=== PATIENT | female | born 1965 | race Caucasian/White ===

== ENCOUNTER 2019-10-15 06:02 | Outpatient (CLI) | payer OTHER, SELFPAY ==
[2019-10-15 18:35] LABS: SARS-CoV-2 RNA PCR Negative
== END 2019-10-15 06:03 | disposition home or self-care (01) ==
LOC: ANHCOVIDDT 06:02
PROVIDERS: PCP Internal Medicine; Visit Provider Internal Medicine Gastroenterology
DX: Z01.818 Encounter for other preprocedural examination (principal); Z11.59 Encounter for screening for other viral diseases
CPT/HCPCS: 87635; C9803; U0003

== ENCOUNTER 2019-10-17 02:29 | Day surgery (SDC) | payer OTHER, SELFPAY ==
[2019-10-14 10:20] VITALS: BMI 36.6
[2019-10-17 06:42] VITALS: BP 121/73; PULSE 79; RESP 16; TEMP 36.6; O2SAT 99; BMI 36.7
[2019-10-17] MEDS: LACTATED RINGERS 1,000 ML 150 ML IV CONT (06:54)
--- NOTE | 2019-10-17 07:03 | WPDANESEPPF ---
Anes - Initial Pre Proc Eval Procedure: Operation Date: 10/17/19 07:30 Proposed Procedures p Esophagogastroduodenoscopy & Colonoscopy - Ian Floyd MD Date/Time: 10/17/19 07:03 Surgeon: Ian Floyd MD Pre Op Diagnosis: Abdominal Pain/ Epigastric Pain Patient Data Age: 54 Gender: F Height: 5 ft 5 in Weight: 100.2 kg Last Vital Signs Temp 36.6 C 10/17/19 06:42 Pulse 79 10/17/19 06:42 Resp 16 10/17/19 06:42 BP 121/73 10/17/19 06:42 Pulse Ox 99 10/17/19 06:42 Allergies Allergy/AdvReac Type Severity Reaction Status Date / Time corn Allergy Severe joint Verified 10/17/19 06:39 swelling Sulfa (Sulfonamide Allergy Mild Diarrhea Verified 10/17/19 06:39 Antibiotics) sulfanilamide Allergy Mild Diarrhea Verified 10/17/19 06:39 tomato Allergy Mild Joint Pain Verified 10/17/19 06:39 gluten AdvReac Mild Joint Pain Verified 10/17/19 06:39 Home Medications Medication Instructions Recorded Confirmed Type alpha lipoic acid 200 mg capsule 200 mg PO DAILY cap 09/26/19 10/17/19 History ascorbic acid (vitamin C) 500 mg 1 gm PO DAILY tablet 09/26/19 10/17/19 History tablet calcium carbonate 600 mg calcium 600 mg PO DAILY 09/26/19 10/17/19 History (1,500 mg) tablet coenzyme Q10 400 mg capsule 1,000 mg PO DAILY 09/26/19 10/17/19 History esomeprazole magnesium 20 mg 20 mg PO DAILY 09/26/19 10/17/19 History capsule,delayed release ferrous sulfate 325 mg (65 mg 325 mg PO .1XW tablet 09/26/19 10/17/19 History iron) tablet lysine 500 mg tablet 500 mg PO DAILY 09/26/19 10/17/19 History magnesium 30 mg tablet 500 mg PO DAILY 09/26/19 10/17/19 History phytonadione (vitamin K1) 100 mcg 100 mcg PO DAILY 09/26/19 10/17/19 History tablet zinc 50 mg tablet 50 mg PO DAILY 09/26/19 10/17/19 History gabapentin 300 mg capsule 300 mg PO DAILY cap 10/01/19 10/17/19 History ibuprofen 800 mg tablet 800 mg PO TID PRN 10/01/19 10/17/19 History biotin 10,000 mcg PO DAILY 10/14/19 10/17/19 History cyanocobalamin (vitamin B-12) 1,000 mcg PO DAILY 10/14/19 10/17/19 History [Vitamin B-12] vitamin E 400 unit PO DAILY 10/14/19 10/17/19 History Patient hx anesthesia problems: none Family hx anesthesia problems: none PMFSH Past Medical History Medical History (Updated 10/17/19 @ 07:03 by Saleem Ayala MD) Breast cancer Obesity Surgical History Surgical History H/O lumpectomy Family History Family History Mother Family history of gallbladder disease Other Family history of coronary artery disease Family history of malignant neoplasm Hypertension Social History Social History Smoking status: Never smoker Second hand tobacco smoke exposure: No Alcohol intake: never Substance use: never Anes - Eval Final PreProcedure Day of Procedure 10/17/19 07:03 Patient weight: obese Heart: regular rate and rhythm Lungs: clear to auscultation Airway: Mallampati scale class II Neurological: alert and oriented Last oral intake: >/= 8 hours ASA classification: III Emergent: no Anesthetic plan: proceed Anesthesia type and monitoring: general GIVS and standard monitoring Informed Consent: The patient's anesthetic plan and its attendant risks and benefits were discussed with the patient/family/POA. Questions were solicited and answers provided to the satisfaction of the patient/family/POA.
--- NOTE | 2019-10-17 07:34 | WPDGICN ---
Assessment and Plan Assessment and plan (1) Breast cancer: Code(s): C50.919 - Malignant neoplasm of unspecified site of unspecified female breast Status: Acute (2) Obesity: Code(s): E66.9 - Obesity, unspecified Status: Acute (3) Abdominal pain: Code(s): R10.9 - Unspecified abdominal pain Status: Acute Assessment and Plan: Patient has abdominal pain in various locations throughout her abdomen. No specific features identified either pain. Her bowel habits are normal or weight has remained stable. Symptoms appear to have started after chemotherapy. She states pain is best in the morning and progresses as the day progresses. Plan is to treat her with proton pump inhibitor because of history of GE reflux. A colonoscopy an EGD will be performed further recommendations may be given after endoscopy. GI Consult Note Consult date/time: 10/17/19 07:34 HPI: Alexa Stone is a 54 year old female Seen in evaluation at the request of Dr. George Bullard. Patient has a diagnosis of breast cancer 1 year ago. She underwent chemotherapy from January 04March and radiation therapy in AprilMay 2019. Since that time she has developed chronic abdominal pain in various locations in her abdomen. Often epigastric pain sometimes with chronic lower abdominal pain. Her bowel habits apparently have been normal. She denies any bleeding or weight loss. Last colonoscopy was in 2005. She has an underlying history of GE reflux. Years ago may have had an esophageal web. She is completed several cycles of chemotherapy. But plan is to evaluate abdominal pain and nausea prior to last cycle of chemotherapy. Review of Systems Review of Systems: All systems reviewed & are unremarkable except as noted in HPI and below PMFSH Past Medical History Medical History Breast cancer Obesity Surgical History Surgical History H/O lumpectomy Family History Family History Mother Family history of gallbladder disease Other Family history of coronary artery disease Family history of malignant neoplasm Hypertension Social History Social History Smoking status: Never smoker Second hand tobacco smoke exposure: No Alcohol intake: never Substance use: never Meds Home Medications and Allergies Home Medications Medication Instructions Recorded Confirmed Type alpha lipoic acid 200 mg capsule 200 mg PO DAILY cap 09/26/19 10/17/19 History ascorbic acid (vitamin C) 500 mg 1 gm PO DAILY tablet 09/26/19 10/17/19 History tablet calcium carbonate 600 mg calcium 600 mg PO DAILY 09/26/19 10/17/19 History (1,500 mg) tablet coenzyme Q10 400 mg capsule 1,000 mg PO DAILY 09/26/19 10/17/19 History esomeprazole magnesium 20 mg 20 mg PO DAILY 09/26/19 10/17/19 History capsule,delayed release ferrous sulfate 325 mg (65 mg 325 mg PO .1XW tablet 09/26/19 10/17/19 History iron) tablet lysine 500 mg tablet 500 mg PO DAILY 09/26/19 10/17/19 History magnesium 30 mg tablet 500 mg PO DAILY 09/26/19 10/17/19 History phytonadione (vitamin K1) 100 mcg 100 mcg PO DAILY 09/26/19 10/17/19 History tablet zinc 50 mg tablet 50 mg PO DAILY 09/26/19 10/17/19 History gabapentin 300 mg capsule 300 mg PO DAILY cap 10/01/19 10/17/19 History ibuprofen 800 mg tablet 800 mg PO TID PRN 10/01/19 10/17/19 History biotin 10,000 mcg PO DAILY 10/14/19 10/17/19 History cyanocobalamin (vitamin B-12) 1,000 mcg PO DAILY 10/14/19 10/17/19 History [Vitamin B-12] vitamin E 400 unit PO DAILY 10/14/19 10/17/19 History Allergies Allergy/AdvReac Type Severity Reaction Status Date / Time corn Allergy Severe joint Verified 10/17/19 06:39 swelling Sulfa (Sulfonamide Allergy Mild Diarrhea Verified 10/17/19 06:39 A
[2019-10-17] MEDS: BENZOCAINE (*SP) 60 ML SPRAY CAN (HURRICAINE) 1 SPRAY MUCOUS MEM (07:39)
[2019-10-17] MEDS: SIMETHICONE ORAL SUSPENSION 20 MG/0.3 ML 30 ML BOTTLE 0.6 ML IRRIGATION (07:51)
[2019-10-17 08:02] VITALS: BP 102/68; PULSE 82; RESP 22; O2SAT 95
[2019-10-17 08:12] VITALS: BP 111/87; PULSE 78; RESP 29; O2SAT 100
[2019-10-17 08:22] VITALS: BP 126/80; PULSE 73; RESP 16; O2SAT 99
== END 2019-10-17 08:54 | disposition home or self-care (01) ==
PROVIDERS: PCP Internal Medicine; Visit Provider Internal Medicine Gastroenterology
PROC: 0DJ08ZZ Inspection of Upper Intestinal Tract, Via Natural or Artificial Opening Endoscopic (ICD-10-PCS; CPT 43235; principal; 2019-10-17 07:30)
DX: R10.84 Generalized abdominal pain (principal); K21.9 Gastro-esophageal reflux disease without esophagitis; Z12.11 Encounter for screening for malignant neoplasm of colon; K64.8 Other hemorrhoids; Z85.3 Personal history of malignant neoplasm of breast; Z92.21 Personal history of antineoplastic chemotherapy; Z92.3 Personal history of irradiation; E66.9 Obesity, unspecified; Z68.36 Body mass index [BMI] 36.0-36.9, adult
CPT/HCPCS: 45378; 43239; 87081; J2704; J7120

== ENCOUNTER 2023-04-04 01:56 | Day surgery (SDC) | payer BC, SELFPAY ==
[2023-03-31 11:44] VITALS: BMI 40.2
[2023-04-04 07:03] VITALS: BP 152/73; PULSE 78; RESP 18; TEMP 36.1; O2SAT 98
[2023-04-04] MEDS: LACTATED RINGERS 1,000 ML 150 ML IV CONT (07:13)
--- NOTE | 2023-04-04 08:03 | WPDANESEPPF ---
Anes - Initial Pre Proc Eval Procedure: Operation Date: 04/04/23 08:15 Proposed Procedures p Esophagogastroduodenoscopy - Rodger Sinha MD Date/Time: 04/04/23 08:03 Surgeon: Rodger Sinha MD Pre Op Diagnosis: Right upper quadrant pain Patient Data Age: 57 Gender: F Height: 1.61 m Weight: 106.8 kg Last Vital Signs Temp 97 F L 04/04/23 07:03 Pulse 78 04/04/23 07:03 Resp 18 04/04/23 07:03 BP 152/73 H 04/04/23 07:03 Pulse Ox 98 04/04/23 07:03 O2 Del Method Room Air 04/04/23 07:03 Allergies Allergy/AdvReac Type Severity Reaction Status Date / Time corn Allergy Severe joint Verified 04/04/23 07:01 swelling Sulfa (Sulfonamide Allergy Mild Diarrhea Verified 04/04/23 07:01 Antibiotics) sulfanilamide Allergy Mild Diarrhea Verified 04/04/23 07:01 tomato Allergy Mild Joint Pain Verified 04/04/23 07:01 gluten AdvReac Mild Joint Pain Verified 04/04/23 07:01 Home Medications Medication Instructions Recorded Confirmed Type anastrozole 1 mg tablet 1 mg PO DAILY 12/27/19 03/31/23 History gabapentin 300 mg capsule 600 mg PO .hs 12/27/19 03/31/23 History potassium citrate 5 mEq (540 mg) 5 meq PO DAILY 02/14/23 03/31/23 History tablet,extended release omeprazole 40 mg capsule,delayed See Rx Instructions .Route 03/29/23 03/31/23 Rx release .COMPLEX #90 caps Patient hx anesthesia problems: none Family hx anesthesia problems: none Results Review: All pre-operative results and documents have been reviewed as part of the pre-operative evaluation. [facility] Past Medical History Medical History (Updated 03/29/23 @ 09:00 by ESTEBAN Shelby) BMI 40.0-44.9, adult Breast cancer Cholecystectomy planned Kidney stones Obesity Surgical History Surgical History (Updated 03/29/23 @ 09:33 by GARTH SchillingN-C) H/O hand surgery H/O lumpectomy H/O: hysterectomy History of appendectomy History of Blood colposuspension Hx of cholecystectomy Family History Family History (Updated 03/29/23 @ 09:01 by ESTEBAN Shelby) Mother Family history of gallbladder disease Heart disease Hypertension Father Hyperlipidemia Sibling Thyroid activity decreased Grandparent Carcinoma of colon Other Family history of coronary artery disease Family history of malignant neoplasm Social History Social History (Updated 03/29/23 @ 08:52 by ESTEBAN Shelby) Smoking status: Never smoker Second hand tobacco smoke exposure: No Alcohol intake: never Substance use: never Substance use type: does not use Lack of Transportation: No Lack of Food: Never True Current Housing: I Have Housing Concerned About Future Housing: No Difficulty Paying Gas/Electric Bills: No Difficulty Paying for Meds: No Currently Unemployed: No Education: Bachelor's Degree Difficulty w/ Childcare or Family Care: No Living arrangements: with family Occupation/Education: occupation 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 Informed Consent: The patient's anesthetic plan and its attendant risks and benefits were discussed with the patient/family/POA. Questions were solicited and answers provided to the satisfaction of the patient/family/POA.
--- NOTE | 2023-04-04 08:14 | WPDHPUPDATE1 ---
History and Physical Update Update Date/Time: 04/04/23 08:14 History and Physical has been reviewed, including an updated exam of the patient. There are NO changes in the patient's condition. Risks, benefits, and alternatives have been discussed and questions answered. Patient agrees to proceed with procedure.
[2023-04-04 08:25] VITALS: BP 111/62; PULSE 69; RESP 19; O2SAT 98
[2023-04-04 08:35] VITALS: BP 124/82; PULSE 77; RESP 17; O2SAT 98
[2023-04-04 08:45] VITALS: BP 130/80; PULSE 69; RESP 15; O2SAT 98
== END 2023-04-04 08:55 | disposition home or self-care (01) ==
PROVIDERS: PCP Internal Medicine; Visit Provider Internal Medicine Gastroenterology
PROC: 0DJ08ZZ Inspection of Upper Intestinal Tract, Via Natural or Artificial Opening Endoscopic (ICD-10-PCS; CPT 43235; principal; 2023-04-04 08:15)
DX: K29.50 Unspecified chronic gastritis without bleeding (principal); K29.80 Duodenitis without bleeding; Z85.3 Personal history of malignant neoplasm of breast; Z79.811 Long term (current) use of aromatase inhibitors; E66.01 Morbid (severe) obesity due to excess calories; Z68.41 Body mass index [BMI] 40.0-44.9, adult
CPT/HCPCS: 43239; 88305; J2704; J7120

== ENCOUNTER 2023-04-21 07:30 | Outpatient (CLI) | payer BC, SELFPAY ==
--- NOTE | ~2023-04-21 | US_ITS ---
US abdomen limited DATE: INDICATION: Right upper quadrant abdominal pain TECHNIQUE: Real-time imaging of liver, pancreas, gallbladder fossa COMPARISON: 05/27/2010 gallbladder ultrasound examination 06/03/2010 and radionuclide hepatobiliary scan FINDINGS: The gallbladder is surgically absent. No hepatic space-occupying mass lesion is detected. Normal hepatopedal portal venous flow. The common bile duct measures 5.3 mm, within normal limits. The pancreatic tail is obscured. The pancreas otherwise appears unremarkable. No pancreatic duct dila tation. IMPRESSION: Status post cholecystectomy Reviewed, dictated and finalized at [facility]. Reviewed, dictated and finalized at [facility]. IMPRESSION: Status post cholecystectomy
== END 2023-04-21 07:31 | disposition home or self-care (01) ==
PROVIDERS: PCP Internal Medicine; Visit Provider Nurse Practitioner Family
DX: R10.11 Right upper quadrant pain (principal)
CPT/HCPCS: 76705

== ENCOUNTER 2024-04-23 15:39 | Outpatient (CLI) | payer BC, SELFPAY ==
--- NOTE | ~2024-04-23 | XR_ITS ---
EXAMINATION: [id number] DATE: 04/23/2024 15:49 INDICATION: Neck pain. TECHNIQUE: 4 views of cervical spine were obtained. COMPARISON: None. FINDINGS: Alignment is normal. Vertebral body heights are normal. There is mildly decreased disc heig ht at C6-C7. There is multilevel mild facet joint osteoarthritis. No neural foraminal stenosis or jaqui tral canal stenosis. IMPRESSION: 1. Mild cervical spondylosis. Reviewed, dictated and finalized at [facility]. 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
== END 2024-04-23 15:40 | disposition home or self-care (01) ==
LOC: MICIMG 15:40
PROVIDERS: PCP Nurse Practitioner; Visit Provider Nurse Practitioner
DX: M47.812 Spondylosis without myelopathy or radiculopathy, cervical region (principal)
CPT/HCPCS: 72040